=== PATIENT | female | born 1990 | race Caucasian/White ===

== ENCOUNTER 2024-05-25 14:46 | Outpatient (CLI) | payer BC, SELFPAY | END 2024-05-25 14:47 | disposition home or self-care (01) | PROVIDERS: Visit Provider Physician Assistant Medical | DX: E55.9 Vitamin D deficiency, unspecified (principal); R21 Rash and other nonspecific skin eruption; R49.9 Unspecified voice and resonance disorder | CPT/HCPCS: 80053; 80061; 82306; 84443 ==

== ENCOUNTER 2024-05-27 14:17 | Outpatient (CLI) | payer BC, SELFPAY ==
--- NOTE | 2024-05-27 14:00 | CRLHL7_ITS ---
For Patients: As a result of the Century Cures Act, medical imaging exams and procedure reports are released immediately into your electronic medical record. You may view this report before your referring provider. If you have questions, please contact your health care provider. INDICATION: History of ovarian cysts COMPARISON: none TECHNIQUE: 2D davalos scale and color Doppler images were acquired of the pelvis using a transabdominal and transvaginal approach. FINDINGS: Sonographic images demonstrate a normal size and smooth outer contour of the uterus. Uterus measures 9.2 cm in length by 4.0 cm in AP diameter by 5.5 cm in transverse dimension. The myometrium has a normal uniform echotexture. The endometrial lining appears normal and measures 3.2 mm in composite thickness. The right ovary measures 2.5 x 1.5 x 2.8 cm in size and the left ovary measures 4.4 x 1.9 x 2.4 cm. The ovaries demonstrate normal arterial and venous blood flow on color Doppler analysis. There are no suspicious fluid collections within the cul-de-sac. Incidental hyperechoic focus within the right ovary measuring 6 x 4 x 5 millimeters representing either calcification or small dermoid. Anechoic cyst left ovary measures 1.6 x 1.5 x 1.4 cm. IMPRESSION: 6 millimeter calcification or dermoid right ovary. Simple left ovarian cyst measures 1.6 x 1.5 x 1.4 cm. No suspicious ovarian lesion. Dictated by Ellis Oshea MD @ 05/29/2024 6:55:53 AM (Electronically Signed)
== END 2024-05-27 14:18 | disposition home or self-care (01) ==
LOC: US 14:18
PROVIDERS: Visit Provider Physician Assistant Medical
DX: Z87.42 Personal history of other diseases of the female genital tract (principal); N83.292 Other ovarian cyst, left side
CPT/HCPCS: 76830; 76856